=== PATIENT | male | born 1955 | race Two or more races ===

== ENCOUNTER 2016-04-30 13:59 | Inpatient (IN) | payer OTHER ==
[2016-04-30 17:19] VITALS: BMI 29.5
--- NOTE | 2016-04-30 18:37 | HP ---
CIWA Score - CIWA Score Nausea/Vomitin Muscle Tremors: 5 Anxiety: 5 Agitation: 5 Paroxysmal Sweats: 1-Minimal Palms Moist Orientation: 0-Oriented Tacttile Disturbances: 0-None Auditory Disturbances: 0-None Visual Disturbances: 0-None Headache: 2-Mild CIWA-Ar Total Score: 20 Admission ROS BHS - HPI Chief Complaint: withdrawal sx Allergies/Adverse Reactions: Allergies Allergy/AdvReac Type Severity Reaction Status Date / Time No Known Allergies Allergy Verified 04/30/16 18:28 History of Present Illness: 61 years old male with long history of alcohol nicotine dependence has hypertension hepatitis c treated, gerd and depression is admitted to detox Exam Limitations: No Limitations - Ebola screening Have you traveled outside of the country in the last 21 days: No Have you had contact with anyone from an Ebola affected area: No Have you been sick,other than usual withdrawal symptoms: No Do you have a fever: No - Review of Systems Constitutional: Chills, Changes in sleep, Weight Stable EENT: reports: No Symptoms Reported Respiratory: reports: No Symptoms reported Cardiac: reports: Palpitations GI: reports: Nausea, Poor Fluid Intake, Vomiting, Indigestion, Abdominal cramping : reports: No Symptoms Reported Musculoskeletal: reports: Back Pain Integumentary: reports: No Symptoms Reported Neuro: reports: Seizure (2011 alcohol related), Tremors Endocrine: reports: No Symptoms Reported Hematology: reports: No Symptoms Reported Psychiatric: reports: Judgement Intact, Orientated x3, Depressed Other Systems: Reviewed and Negative Patient History - Patient Medical History Hx Anemia: No Hx Asthma: No Hx Chronic Obstructive Pulmonary Disease (COPD): No Hx Cancer: No Hx Cardiac Disorders: No Hx Congestive Heart Failure: No Hx Hypertension: Yes Hx Hypercholesterolemia: No Hx Pacemaker: No HX Cerebrovascular Accident: No Hx Seizures: Yes (had seizures X1, 5 yrs ago) Hx Dementia: No Hx Diabetes: No Hx Gastrointestinal Disorders: No Hx Liver Disease: Yes Hx Genitourinary Disorders: No Hx Sexually Transmitted Disorders: No Hx Renal Disease (ESRD): No Hx Thyroid Disease: No Hx Human Immunodeficiency Virus (HIV): No Hx Hepatitis C: Yes Hx Depression: Yes Hx Suicide Attempt: No Hx Bipolar Disorder: No Hx Schizophrenia: No - Patient Surgical History Past Surgical History: No Hx Neurologic Surgery: No Hx Cataract Extraction: No Hx Cardiac Surgery: No Hx Lung Surgery: No Hx Breast Surgery: No Hx Breast Biopsy: No Hx Abdominal Surgery: No Hx Appendectomy: No Hx Cholecystectomy: No Hx Genitourinary Surgery: No Hx Orthopedic Surgery: No Anesthesia Reaction: No - PPD History Previous Implant?: Yes Documented Results: Negative w/proof Implanted On Prior [facility] Admission?: Yes Date: 06/08/14 Results: 0 mm PPD to be Administered?: Yes - Smoking Cessation Smoking history: Current every day smoker Have you smoked in the past 12 months: Yes Aproximately how many cigarettes per day: 10 Cigars Per Day: 0 Hx Chewing Tobacco Use: No Initiated information on smoking cessation: Yes 'Breaking Loose' booklet given: 04/30/16 - Substance & Tx. History Hx Alcohol Use: Yes Hx Substance Use: No Substance Use Type: Alcohol Hx Substance Use Treatment: Yes - Substances Abused Alcohol Route: Oral Frequency: Daily Amount used: LIQUOR- 3 PINTS Age of first use: 17 Date of Last Use: 04/30/16 Family Disease History - Family Disease History Family Disease History: Heart Disease: Mother (HTN,ALCOHOL), Other: Father ( ALCOHOL), Mother Admission Physical Exam [facility] - Vital Signs Vital Signs: Vital Signs - 24 hr 04/30/16 17:13 Temperature 99.3 F Pulse Rate 98 H Respiratory 20 Rate Blood Pressure 190/94 - Physical General Appearance: Yes: Appropriately Dressed, Mild Distress, Tremorous, Irritable, Sweating, Anxious HEENTM: Yes: Hearing grossly Normal, Normal ENT Inspection, Normocephalic, Normal Voice Respiratory: Yes: Chest Non-Tender, Lungs Clear, Normal Breath Sounds, No Respiratory Distress, No Accessory Muscle Use Neck: Yes: Supple, Trachea in good position Breast: Yes: Breasts Symetrical Cardiology: Yes: Regular Rhythm, S1, S2, Tachycardia Abdominal: Yes: Non Tender, Soft Genitourinary: Yes: Within Normal Limits Back: Yes: Normal Inspection Musculoskeletal: Yes: full range of Motion, Gait Steady, Back pain, Joint swelling (both ankles), Muscle Pain Extremities: Yes: Normal Range of Motion, Non-Tender, Tremors, Swelling (ankles) Neurological: Yes: Fully Oriented, Alert, Motor Strength 5/5, Normal Response, Depressed Affect (mother 15 years ago, heavy alcohol drinking) Integumentary: Yes: Warm, Clammy Lymphatic: Yes: Within Normal Limits - Diagnostic (1) Hepatitis C Current Visit: Yes Status: Resolved Qualifiers: Viral hepatitis chronicity: carrier Qualified Code(s): Z22.52 - Carrier of viral hepatitis C (2) Nicotine dependence Current Visit: Yes Status: Acute Qualifiers: Nicotine product type: cigarettes Substance use status: uncomplicated Qualified Code(s): F17.210 - Nicotine dependence, cigarettes, uncomplicated (3) Alcohol dependence with uncomplicated withdrawal Current Visit: Yes Status: Acute (4) Hypertension Current Visit: Yes Status: Acute Qualifiers: Hypertension type: essential hypertension Qualified Code(s): I10 - Essential (primary) hypertension (5) GERD (gastroesophageal reflux disease) Current Visit: Yes Status: Acute Qualifiers: Esophagitis presence: without esophagitis Qualified Code(s): K21.9 - Gastro-esophageal reflux disease without esophagitis (6) Dry skin dermatitis Current Visit: Yes Status: Acute Cleared for Admission BHS - Detox or Rehab BHS Level of Care: Medically Managed Detox Regimen/Protocol: Librium BHS Breath Alcohol Content Breath Alcohol Content: 0 Urine Drug Screen - Control Is Test Valid: Yes - Results Drug Screen Negative: Yes
[2016-04-30] MEDS ORDERED: P-EPHED 60MG/TRIPROLIDI 2.5MG TABLET PO PRN (18:43)
[2016-04-30] MEDS ORDERED: hydrOXYzine PAMOATE 50 MG CAPSULE (FP) PO PRN (18:43)
[2016-04-30] MEDS ORDERED: IBUPROFEN 400 MG TABLET (FP) PO PRN (18:43)
[2016-04-30] MEDS ORDERED: MAGNESIUM CITRATE 300 ML BOTTLE PO PRN (18:43)
[2016-04-30] MEDS ORDERED: NICOTINE POLACRILEX 2 MG GUM BUC PRN (18:43)
[2016-04-30] MEDS ORDERED: guaiFENesin/D-METHORPHAN HB 10 ML UNIT-DOSE CUPS PO PRN (18:43)
[2016-04-30] MEDS ORDERED: MENTHOL/PHENOL 1 EACH UD MM PRN (18:43)
[2016-04-30] MEDS ORDERED: ACETAMINOPHEN 325 MG TABLET (FP) PO PRN (18:43)
[2016-04-30] MEDS ORDERED: chlordiazePOXIDE HCL 25 MG CAPSULE PO PRN (18:43)
[2016-04-30] MEDS ORDERED: LOPERAMIDE HCL 2 MG CAPSULE PO PRN (18:43)
[2016-04-30] MEDS ORDERED: MAG HYDROX/AL HYDROX/SIMETH 30 ML UNIT-DOSE CUP PO PRN (18:43)
[2016-04-30] MEDS ORDERED: MAGNESIUM HYDROX 2400MG/30ML ORAL SUSPENSION 30 ML CUP PO PRN (18:43)
[2016-04-30] MEDS ORDERED: cloNIDine HCL 0.1 MG TABLET PO PRN (18:45)
[2016-04-30] MEDS ORDERED: amLODIPine BESYLATE 5 MG TABLET (FP) PO ONE (18:46)
[2016-04-30] MEDS ORDERED: ONDANSETRON *ODT* 4 MG TABLET SL PRN (18:53)
[2016-04-30] MEDS ORDERED: chlordiazePOXIDE HCL 25 MG CAPSULE PO ONE (19:00)
[2016-04-30] MEDS ORDERED: COLLOIDAL OATMEAL 1 BAR EACH TP PRN (19:14)
[2016-04-30] MEDS ORDERED: CYCLOBENZAPRINE HCL 10 MG TABLET (FP) PO PRN (19:16)
[2016-04-30] MEDS: THIAMINE HCL 100 MG TABLET (FP) PO SCH (22:05)
[2016-04-30] MEDS: chlordiazePOXIDE HCL 25 MG CAPSULE PO SCH (22:05)
[2016-04-30] MEDS: diphenhydrAMINE HCL 50 MG CAPSULE PO PRN (22:05)
[2016-04-30] MEDS: LISINOPRIL 10 MG TABLET (FP) PO SCH (22:05)
[2016-04-30] MEDS: MINERAL OIL/PETROLAT/WATER TOPICAL CREAM 113 GM JAR TP SCH (22:53)
[2016-04-30 23:13] LABS: PH,URINE 7.5 (5.0-8.0); URINE APPEARANCE CLEAR; URINE BILIRUBIN 1+ (NEGATIVE); URINE BLOOD TRACE-INTA (NEGATIVE); URINE COLOR LT. YELLOW; URINE GLUCOSE (UA) NEGATIVE (NEGATIVE); URINE KETONE TRACE (NEGATIVE); URINE LEUK ESTERASE NEGATIVE (NEGATIVE); URINE NITRITE NEGATIVE (NEGATIVE); URINE PROTEIN TRACE (NEGATIVE); URINE UROBILINOGEN 0.2 E.U/dl E.U./dl (0.2-1.0)
[2016-05-01] MEDS: chlordiazePOXIDE HCL 25 MG CAPSULE PO SCH ×4 (06:17→22:07)
--- NOTE | 2016-05-01 09:42 | PN ---
S CIWA - CIWA Score Nausea/Vomitin Muscle Tremors: 3 Anxiety: 3 Agitation: 2 Paroxysmal Sweats: 1-Minimal Palms Moist Orientation: 0-Oriented Tacttile Disturbances: 1-Very Mild Itch/Numbness Auditory Disturbances: 1-Very Mild Visual Disturbances: 1-Very Mild Sensitivity Headache: 2-Mild CIWA-Ar Total Score: 17 BHS Progress Note (SOAP) Subjective: ALERT,IRRITABLE,ANXIOUS,INTERRUPTED SLEEP,TREMOR,PAIN IN THE BODY Objective: 05/01/16 09:40 Vital Signs Temperature 97.8 F 05/01/16 09:30 Pulse Rate 84 05/01/16 09:30 Respiratory Rate 18 05/01/16 09:30 Blood Pressure 147/84 05/01/16 09:30 O2 Sat by Pulse Oximetry (%) EKG NSR 96/MIN,LVH NO CHEST PAIN,NO SOB,NO DIZZINESS Laboratory Last Values Urine Color Lt. yellow 04/30/16 23:00 Urine Appearance Clear 04/30/16 23:00 Urine pH 7.5 (5.0-8.0) D 04/30/16 23:00 Ur Specific [place] 1.015 (1.001-1.035) 04/30/16 23:00 Urine Protein Trace (NEGATIVE) H 04/30/16 23:00 Urine Glucose (UA) Negative (NEGATIVE) 04/30/16 23:00 Urine Ketones Trace (NEGATIVE) H 04/30/16 23:00 Urine Blood Trace-inta (NEGATIVE) 04/30/16 23:00 Urine Nitrite Negative (NEGATIVE) 04/30/16 23:00 Urine Bilirubin 1+ (NEGATIVE) H 04/30/16 23:00 Urine Urobilinogen 0.2 e.u/dl E.U./dl (0.2-1.0) 04/30/16 23:00 Ur Leukocyte Esterase Negative (NEGATIVE) 04/30/16 23:00 LABS PENDING Assessment: 05/01/16 09:42 WITHDRAWAL SYMPTOM Plan: CONTINUE DETOX
[2016-05-01 09:54] LABS: MCH 27.1 pg (25.7-33.7); MEAN CELL VOLUME 84.7 fl (80-96); MEAN PLT VOLUME 9.8 fl (7.5-11.1); PLATELET COUNT 177 K/MM3 (134-434); RDW 16.6 % (11.9-15.9); WHITE BLOOD COUNT 4.1 K/mm3 (4.0-10.0)
[2016-05-01] MEDS: PRENATAL VITAMINS W/ FOLIC ACID TABLET (FP) PO SCH (10:07)
[2016-05-01] MEDS: LISINOPRIL 10 MG TABLET (FP) PO SCH ×2 (10:08→22:07)
[2016-05-01] MEDS: NICOTINE 14 MG/24 HOURS TOPICAL PATCH TD SCH (10:08)
[2016-05-01 10:43] LABS: ALBUMIN 3.4 g/dl (3.4-5.0); ALK PHOS 60 U/L (45-117); ANION GAP 8 (8-16); BILIRUBIN,TOTAL 0.6 mg/dL (0.2-1.0); CALCIUM 9.2 mg/dL (8.5-10.1); CO2 29 mmol/L (21-32); GLUCOSE,RANDOM 166 mg/dL (74-106); SGOT/AST 41 U/L (15-37); SGPT/ALT 46 U/L (12-78); TOT PROT 6.8 g/dl (6.4-8.2)
--- NOTE | 2016-05-01 15:58 | CONSULT ---
[facility] Psychiatric Consult - Data Date of interview: 05/01/16 Admission source: [facility] Identifying data: Readmission to [facility] for this 61 y/o [place]-born male seeking detox treatment on for alcohol dependence.Patient is single ,a father of six,homeless,unemployed and dependent on odd jobs. Substance Abuse History: - Smoking Cessation. Smoking history: Current every day smoker. Have you smoked in the past 12 months: Yes. Aproximately how many cigarettes per day: 10. Cigars Per Day: 0. Hx Chewing Tobacco Use: No. Initiated information on smoking cessation: Yes. 'Breaking Loose' booklet given : 04/30/16. - Substance & Tx. History. Hx Alcohol Use: Yes. Hx Substance Use : No. Substance Use Type: Alcohol. Hx Substance Use Treatment: Yes. - Substances Abused. Alcohol. Route: Oral. Frequency: Daily. Amount used: LIQUOR- 3 PINTS. Age of first use: 17. Date of Last Use: 04/30/16. Confirmed by patient. Medical History: Significant for hypertension,withdrawal seizures,hepatitis C and obesity. Psychiatric History: Patient denies. Physical/Sexual Abuse/Trauma History: Patient denies. Mental Status Exam - Mental Status Exam Alert and Oriented to: Time, Place, Person Cognitive Function: Good Patient Appearance: Unkempt, Disheveled Mood: Hopeful, Euthymic Affect: Appropriate, Normal Range Patient Behavior: Fatigued, Talkative (friendly), Appropriate, Cooperative Speech Pattern: Clear, Appropriate Voice Loudness: Normal Thought Process: Goal Oriented Thought Disorder: Not Present Hallucinations: Denies Suicidal Ideation: Denies Homicidal Ideation: Denies Insight/Judgement: Poor Sleep: Fair Appetite: Good Muscle strength/Tone: Normal Gait/Station: Normal Psychiatric Findings - Problem List ([place] 1, 2,3) (1) Alcohol dependence with uncomplicated withdrawal Current Visit: Yes Status: Acute (2) GERD (gastroesophageal reflux disease) Current Visit: Yes Status: Chronic Qualifiers: Esophagitis presence: without esophagitis Qualified Code(s): K21.9 - Gastro-esophageal reflux disease without esophagitis (3) Hypertension Current Visit: Yes Status: Chronic Qualifiers: Hypertension type: essential hypertension Qualified Code(s): I10 - Essential (primary) hypertension (4) Hepatitis C Current Visit: Yes Status: Resolved Qualifiers: Viral hepatitis chronicity: carrier Qualified Code(s): Z22.52 - Carrier of viral hepatitis C (5) Nicotine dependence Current Visit: Yes Status: Acute Qualifiers: Nicotine product type: cigarettes Substance use status: uncomplicated Qualified Code(s): F17.210 - Nicotine dependence, cigarettes, uncomplicated - Initial Treatment Plan Initial Treatment Plan: Psychoeducation.Detoxification.Observation.
[2016-05-01] MEDS: MINERAL OIL/PETROLAT/WATER TOPICAL CREAM 113 GM JAR TP SCH (22:07)
[2016-05-01] MEDS: THIAMINE HCL 100 MG TABLET (FP) PO SCH (22:07)
[2016-05-01] MEDS: diphenhydrAMINE HCL 50 MG CAPSULE PO PRN (22:07)
[2016-05-02] MEDS: chlordiazePOXIDE HCL 25 MG CAPSULE PO SCH ×3 (06:16→17:35)
--- NOTE | 2016-05-02 08:58 | PN ---
S CIWA - CIWA Score Nausea/Vomitin Muscle Tremors: 3 Anxiety: 3 Agitation: 3 Paroxysmal Sweats: 1-Minimal Palms Moist Orientation: 0-Oriented Tacttile Disturbances: 1-Very Mild Itch/Numbness Auditory Disturbances: 1-Very Mild Visual Disturbances: 1-Very Mild Sensitivity Headache: 2-Mild CIWA-Ar Total Score: 18 BHS Progress Note (SOAP) Subjective: ALERT,IRRITABLE,ANXIOUS,INTERRUPTED SLEEP,TREMOR Objective: 05/02/16 08:57 Vital Signs Temperature 97.8 F 05/02/16 06:21 Pulse Rate 77 05/02/16 06:21 Respiratory Rate 18 05/02/16 06:21 Blood Pressure 143/83 05/02/16 06:21 O2 Sat by Pulse Oximetry (%) Laboratory Last Values WBC 4.1 K/mm3 (4.0-10.0) 05/01/16 07:00 RBC 4.73 M/mm3 (4.00-5.60) 05/01/16 07:00 Hgb 12.8 GM/dL (11.7-16.9) 05/01/16 07:00 Hct 40.1 % (35.4-49) 05/01/16 07:00 MCV 84.7 fl (80-96) 05/01/16 07:00 MCHC 32.0 g/dl (32.0-35.9) 05/01/16 07:00 RDW 16.6 % (11.9-15.9) H D 05/01/16 07:00 Plt Count 177 K/MM3 (134-434) 05/01/16 07:00 MPV 9.8 fl (7.5-11.1) 05/01/16 07:00 Sodium 145 mmol/L (136-145) 05/01/16 07:00 Potassium 3.5 mmol/L (3.5-5.1) 05/01/16 07:00 Chloride 108 mmol/L (98-107) H 05/01/16 07:00 Carbon Dioxide 29 mmol/L (21-32) 05/01/16 07:00 Anion Gap 8 (8-16) 05/01/16 07:00 BUN 13 mg/dL (7-18) 05/01/16 07:00 Creatinine 1.0 mg/dL (0.7-1.3) D 05/01/16 07:00 Creat Clearance w eGFR > 60 (>60) 05/01/16 07:00 Random Glucose 166 mg/dL (74-106) H D 05/01/16 07:00 Calcium 9.2 mg/dL (8.5-10.1) 05/01/16 07:00 Total Bilirubin 0.6 mg/dL (0.2-1.0) D 05/01/16 07:00 AST 41 U/L (15-37) H D 05/01/16 07:00 ALT 46 U/L (12-78) D 05/01/16 07:00 Alkaline Phosphatase 60 U/L (45-117) 05/01/16 07:00 Total Protein 6.8 g/dl (6.4-8.2) 05/01/16 07:00 Albumin 3.4 g/dl (3.4-5.0) 05/01/16 07:00 Urine Color Lt. yellow 04/30/16 23:00 Urine Appearance Clear 04/30/16 23:00 Urine pH 7.5 (5.0-8.0) D 04/30/16 23:00 Ur Specific [place] 1.015 (1.001-1.035) 04/30/16 23:00 Urine Protein Trace (NEGATIVE) H 04/30/16 23:00 Urine Glucose (UA) Negative (NEGATIVE) 04/30/16 23:00 Urine Ketones Trace (NEGATIVE) H 04/30/16 23:00 Urine Blood Trace-inta (NEGATIVE) 04/30/16 23:00 Urine Nitrite Negative (NEGATIVE) 04/30/16 23:00 Urine Bilirubin 1+ (NEGATIVE) H 04/30/16 23:00 Urine Urobilinogen 0.2 e.u/dl E.U./dl (0.2-1.0) 04/30/16 23:00 Ur Leukocyte Esterase Negative (NEGATIVE) 04/30/16 23:00 RPR Titer Nonreactive (NONREACTIVE) 05/01/16 07:00 Assessment: 05/02/16 08:57 WITHDRAWAL SYMPTOM Plan: CONTINUE DETOX
--- NOTE | 2016-05-02 09:44 | PN ---
BHS Progress Note Note: INITIAL GLUCOSE IS 166,BGM BID AC MONITORING
[2016-05-02] MEDS: LISINOPRIL 10 MG TABLET (FP) PO SCH ×2 (10:08→22:25)
[2016-05-02] MEDS: NICOTINE 14 MG/24 HOURS TOPICAL PATCH TD SCH (10:08)
[2016-05-02] MEDS: PRENATAL VITAMINS W/ FOLIC ACID TABLET (FP) PO SCH (10:08)
--- NOTE | 2016-05-02 10:27 | EKG ---
Test Reason : Blood Pressure : / mmHG Vent. Rate : 097 BPM Atrial Rate : 097 BPM P-R Int : 198 ms QRS Dur : 122 ms QT Int : 400 ms P-R-T Axes : 069 017 030 degrees QTc Int : 508 ms NORMAL SINUS RHYTHM RSR' OR QR PATTERN IN V1 SUGGESTS RIGHT VENTRICULAR CONDUCTION DELAY JUNCTIONAL ST DEPRESSION, PROBABLY NORMAL BORDERLINE ECG NO PREVIOUS ECGS AVAILABLE Confirmed by NALDO GALE, ZHENG ([id number]) on 05/02/2016 10:27:13 AM Referred By: Confirmed By:ZHENG HITCHCOCK MD
[2016-05-02] MEDS: chlordiazePOXIDE 5 MG CAPSULE PO SCH (22:25)
[2016-05-02] MEDS: THIAMINE HCL 100 MG TABLET (FP) PO SCH (22:25)
[2016-05-02] MEDS: diphenhydrAMINE HCL 50 MG CAPSULE PO PRN (22:26)
[2016-05-02] MEDS: MINERAL OIL/PETROLAT/WATER TOPICAL CREAM 113 GM JAR TP SCH (23:50)
[2016-05-03] MEDS: chlordiazePOXIDE 5 MG CAPSULE PO SCH ×3 (06:13→17:48)
--- NOTE | 2016-05-03 08:55 | PN ---
S Progress Note (SOAP) Subjective: ALERT,IRRITABLE,ANXIOUS,INTERRUPTED SLEEP Objective: 05/03/16 08:53 Vital Signs Temperature 97.3 F L 05/03/16 06:38 Pulse Rate 75 05/03/16 06:38 Respiratory Rate 18 05/03/16 06:38 Blood Pressure 129/76 05/03/16 06:38 O2 Sat by Pulse Oximetry (%) BGM 115 Assessment: 05/03/16 08:54 WITHDRAWAL SYMPTOM Plan: CONTINUE DETOX,BGM MONITORING,DISCHARGE IN AM
[2016-05-03] MEDS: NICOTINE 14 MG/24 HOURS TOPICAL PATCH TD SCH (10:18)
[2016-05-03] MEDS: PRENATAL VITAMINS W/ FOLIC ACID TABLET (FP) PO SCH (10:18)
[2016-05-03] MEDS: LISINOPRIL 10 MG TABLET (FP) PO SCH ×2 (10:18→22:05)
[2016-05-03] MEDS: THIAMINE HCL 100 MG TABLET (FP) PO SCH (22:05)
[2016-05-03] MEDS: chlordiazePOXIDE HCL 10 MG CAPSULE PO SCH (22:05)
[2016-05-03] MEDS: diphenhydrAMINE HCL 50 MG CAPSULE PO PRN (22:06)
[2016-05-03] MEDS: MINERAL OIL/PETROLAT/WATER TOPICAL CREAM 113 GM JAR TP SCH (22:11)
[2016-05-04] MEDS: chlordiazePOXIDE HCL 10 MG CAPSULE PO SCH (05:45)
[2016-05-04 09:27] VITALS: BP 153/76; PULSE 78; TEMP 96.4
--- NOTE | 2016-05-04 10:39 | DS ---
[facility] Detox Discharge Summary Admission Date: 04/30/16 Discharge Date: 05/04/16 - History Present History: Alcohol Dependence Pertinent Past History: HEP C GERD HTN - Physical Exam Results Vital Signs: Vital Signs Temperature 96.4 F L 05/04/16 09:26 Pulse Rate 78 05/04/16 09:26 Respiratory Rate 18 05/04/16 09:26 Blood Pressure 153/76 05/04/16 09:26 O2 Sat by Pulse Oximetry (%) Pertinent Admission Physical Exam Findings: WITHDRAWAL SX. Laboratory Last Values WBC 4.1 K/mm3 (4.0-10.0) 05/01/16 07:00 RBC 4.73 M/mm3 (4.00-5.60) 05/01/16 07:00 Hgb 12.8 GM/dL (11.7-16.9) 05/01/16 07:00 Hct 40.1 % (35.4-49) 05/01/16 07:00 MCV 84.7 fl (80-96) 05/01/16 07:00 MCHC 32.0 g/dl (32.0-35.9) 05/01/16 07:00 RDW 16.6 % (11.9-15.9) H D 05/01/16 07:00 Plt Count 177 K/MM3 (134-434) 05/01/16 07:00 MPV 9.8 fl (7.5-11.1) 05/01/16 07:00 Sodium 145 mmol/L (136-145) 05/01/16 07:00 Potassium 3.5 mmol/L (3.5-5.1) 05/01/16 07:00 Chloride 108 mmol/L (98-107) H 05/01/16 07:00 Carbon Dioxide 29 mmol/L (21-32) 05/01/16 07:00 Anion Gap 8 (8-16) 05/01/16 07:00 BUN 13 mg/dL (7-18) 05/01/16 07:00 Creatinine 1.0 mg/dL (0.7-1.3) D 05/01/16 07:00 Creat Clearance w eGFR > 60 (>60) 05/01/16 07:00 POC Glucometer 112 UNITS (()) 05/04/16 05:44 Random Glucose 166 mg/dL (74-106) H D 05/01/16 07:00 Calcium 9.2 mg/dL (8.5-10.1) 05/01/16 07:00 Total Bilirubin 0.6 mg/dL (0.2-1.0) D 05/01/16 07:00 AST 41 U/L (15-37) H D 05/01/16 07:00 ALT 46 U/L (12-78) D 05/01/16 07:00 Alkaline Phosphatase 60 U/L (45-117) 05/01/16 07:00 Total Protein 6.8 g/dl (6.4-8.2) 05/01/16 07:00 Albumin 3.4 g/dl (3.4-5.0) 05/01/16 07:00 Urine Color Lt. yellow 04/30/16 23:00 Urine Appearance Clear 04/30/16 23:00 Urine pH 7.5 (5.0-8.0) D 04/30/16 23:00 Ur Specific [employer] 1.015 (1.001-1.035) 04/30/16 23:00 Urine Protein Trace (NEGATIVE) H 04/30/16 23:00 Urine Glucose (UA) Negative (NEGATIVE) 04/30/16 23:00 Urine Ketones Trace (NEGATIVE) H 04/30/16 23:00 Urine Blood Trace-inta (NEGATIVE) 04/30/16 23:00 Urine Nitrite Negative (NEGATIVE) 04/30/16 23:00 Urine Bilirubin 1+ (NEGATIVE) H 04/30/16 23:00 Urine Urobilinogen 0.2 e.u/dl E.U./dl (0.2-1.0) 04/30/16 23:00 Ur Leukocyte Esterase Negative (NEGATIVE) 04/30/16 23:00 RPR Titer Nonreactive (NONREACTIVE) 05/01/16 07:00 LABS NOTED - Treatment Hospital Course: Detox Protocol Followed, Detoxed Safely, Responded well, Discharged Condition Good, Rehab Referral Accepted - Medication Discharge Medications: Ambulatory Orders Clonidine HCl [Catapres -] 0.1 mg PO BID #60 tablet 07/06/14 Hydroxyzine Pamoate [Vistaril -] 50 mg PO Q6H PRN #60 capsule 07/06/14 Lisinopril [Prinivil] 10 mg PO DAILY #30 tablet 07/06/14 Quetiapine Fumarate [Seroquel -] 25 mg PO HS #30 tablet 07/06/14 - Diagnosis (1) Alcohol dependence with uncomplicated withdrawal Status: Acute (2) Cannabis dependence Status: Acute (3) Nicotine dependence Status: Acute Qualifiers: Nicotine product type: cigarettes Substance use status: uncomplicated Qualified Code(s): F17.210 - Nicotine dependence, cigarettes, uncomplicated (4) GERD (gastroesophageal reflux disease) Status: Chronic Qualifiers: Esophagitis presence: without esophagitis Qualified Code(s): K21.9 - Gastro-esophageal reflux disease without esophagitis (5) Hypertension Status: Chronic Qualifiers: Hypertension type: essential hypertension Qualified Code(s): I10 - Essential (primary) hypertension - AMA Did Patient Leave Against Medical Advice: No
== END 2016-05-04 09:51 | disposition home or self-care (01) | DRG 775 ==
LOC: YASAS 13:59 → Y3N 18:52
PROVIDERS: ADMIT Internal Medicine; ATTEND Internal Medicine
PROC: HZ2ZZZZ Detoxification Services for Substance Abuse Treatment (ICD-10-PCS; principal; 2016-04-30)
DX: F10.230 Alcohol dependence with withdrawal, uncomplicated (principal); F12.20 Cannabis dependence, uncomplicated; F17.210 Nicotine dependence, cigarettes, uncomplicated; K21.9 Gastro-esophageal reflux disease without esophagitis; I10 Essential (primary) hypertension; B18.2 Chronic viral hepatitis C; E66.9 Obesity, unspecified; Z68.29 Body mass index [BMI] 29.0-29.9, adult; K76.9 Liver disease, unspecified; L85.3 Xerosis cutis; Z86.69 Personal history of other diseases of the nervous system and sense organs
CPT/HCPCS: 36415; 71020-TC; 80053; 81003; 85027; 86593; 93005; 93010